=== PATIENT | male | born 1990 | race Caucasian/White ===

== ENCOUNTER 2020-02-25 10:52 | Outpatient (NON) | payer BC, SELFPAY ==
[2020-02-25 19:48] LABS: SARS-CoV-2 RNA PCR Negative
== END 2020-02-25 10:53 ==
PROVIDERS: PCP Nurse Practitioner Family; Visit Provider Nurse Practitioner Family
DX: Z20.828 Contact with and (suspected) exposure to other viral communicable diseases (principal); R05 Cough
CPT/HCPCS: 87635; C9803; U0003

== ENCOUNTER 2020-05-23 08:40 | Outpatient (NON) | payer BC, SELFPAY ==
[2020-05-23 23:03] LABS: SARS-CoV-2 RNA PCR Positive
== END 2020-05-23 08:41 ==
PROVIDERS: PCP Nurse Practitioner Family; Visit Provider Nurse Practitioner Family
DX: U07.1 COVID-19 (principal)
CPT/HCPCS: 87635; C9803; U0003